=== PATIENT | female | born 1995 | race Caucasian/White ===

== ENCOUNTER 2018-12-18 12:36 | Emergency (ER) | payer BC ==
[~2018-12-18] VITALS: Ht 157.5 cm; Wt 73.5 kg
[~2018-12-18 12:36] MED LIST: AMOXICILLIN875 MG PO; MOTRIN IB200 MG PO; NORCO 10-325 T1 EACH PO; NORCO 5-325 TA1 EACH PO
== END 2018-12-18 13:15 | disposition home or self-care (01) ==
LOC: ED 12:36
DX: K08.89 Other specified disorders of teeth and supporting structures (principal)

== ENCOUNTER 2020-10-22 07:40 | Day surgery (SDC) | payer BC, OTHER ==
[~2020-10-22] VITALS: Ht 157.5 cm; Wt 79.1 kg
--- NOTE | ~2020-10-22 | OR ---
[facility] [address] [place], [place] [address] Draft DATE OF OPERATION: 10/22/2020 SURGEON: Saleem Farrell MD PREOPERATIVE DIAGNOSES: Chronic tonsillitis, tonsillithiasis. POSTOPERATIVE DIAGNOSES: Chronic tonsillitis, tonsillithiasis. PROCEDURE: Tonsillectomy. ANESTHESIA: General orotracheal. GLUELINE WORKER: Maggy. PREOPERATIVE HISTORY: Kita is a 25-year-old young lady with chronic tonsillitis, tonsillithiasis, tonsillar hypertrophy, taken to the operating for the above-mentioned procedures. OPERATIVE PROCEDURE AND FINDINGS: After informed consent, the patient was taken to the operating room, placed in supine position where general orotracheal anesthesia was induced. The patient and procedure were verified. The patient was repositioned, McIvor mouth gag placed into suspension. Headlight exam of the pharynx showed markedly hypertrophic obstructive cryptic tonsillithic tonsils. The left tonsil was grasped with a tenaculum, retracted medially and removed from its fossa with mucosa-sparing incision with Coblation. Field was dry after the procedure. Same procedure on the right tonsil, tonsils were sent to pathology. The mouth gag was released for several minutes. Reinspection showed no bleeding points. The pharynx was suctioned clear of blood and secretions. Mouth gag was removed. The patient was awakened, extubated, transported to the recovery room in good condition. No complications. BLOOD LOSS: Minimal. SPECIMEN: PATIENT NAME: KITA PALACIO OPERATIVE REPORT DATE OF : [birth year] REPORT #: [id number] PHYSICIAN: SALEEM FARRELL MD PCP: LUIS ENRIQUE FULTON MD REPORT IS CONFIDENTIAL AND NOT TO BE RELEASED WITHOUT AUTHORIZATION [address] [address] Draft To pathology. DRAINS: No drains. Saleem Farrell MD GC/TIERNEY /[id number] Copies: ~ PATIENT NAME: KITA PALACIO OPERATIVE REPORT DATE OF : [birth year] REPORT #: [id number] PHYSICIAN: SALEEM FARRELL MD PCP: LUIS ENRIQUE FULTON MD REPORT IS CONFIDENTIAL AND NOT TO BE RELEASED WITHOUT AUTHORIZATION
[~2020-10-22 07:40] MED LIST changes: +METHADOSE40 MG PO
--- NOTE | 2020-10-22 10:11 | NUR ---
10/22/20 1011 Sheets,Yasemin 0950 PT ARRIVED TO PACU COUGHING AND ON 6L VIA MASK, VSS. PT REPORTS SMALL AMOUNT OF PAIN. 1000 SUCTIONS GIVEN TO PT, PT ABLE TO FOLLOW COMMANDS AND SUCTION SMALL AMOUNT OF RED DRAINAGE FROM MOUTH. 1010 PLAN OF CARE DISCUSSED.
--- NOTE | 2020-10-22 10:29 | NUR ---
PT IS BACK TO DS FROM PACU. SHE IS REPORTING MORE TOOTH THAN THROAT PAIN. SHE IS TOLERATING SIPS OF WATER. CALL LIGHT WITHIN REACH. SHE IS AGREEABLE TO TRYING SOME JELLO. NO ADDITIONAL NEEDS AT THIS TIME.
[2020-10-22] MEDS ORDERED: HYDROCODONE-ACE15 M3 PO (10:38)
--- NOTE | 2020-10-22 11:32 | NUR ---
PT IS RESTING COMFORTABLY. BOYFRIEND IS SITTING AT THE BEDSIDE. CALL LIGHT WITHIN REACH. SHE TOLERATES JELLO AND WATER. NO ADDITIONAL NEEDS AT THIS TIME.
--- NOTE | 2020-10-22 12:36 | NUR ---
KVNG 1215: PT IS GIVEN VERBAL DC INSTRUCTIONS WITH BOYFRIEND PRESENT. BOTH VERBALIZE UNDERSTANDING. QUESTIONS ARE ASKED AND ANSWERED. PT IS TAKEN TO VEHICLE IN . SHE IS ABLE TO TRANSFER HERSELF FROM WC TO VEHICLE.
--- NOTE | 2020-10-24 14:29 | PATH ---
[facility] [address] [place], [place] [address] Signed SPECIMEN(S): A LEFT TONSIL SPECIMEN(S): B RIGHT TONSIL SPECIMEN SOURCE: A. LEFT TONSIL B. RIGHT TONSIL CLINICAL HISTORY: Tonsillectomy. Chronic tonsillitis with tonsillar hypertrophy. FINAL PATHOLOGIC DIAGNOSIS: A. Left tonsil: - [place] tonsil with focal acute epithelial inflammation (tonsillitis) and lymphofollicular hyperplasia with reactive features. B. Right tonsil: - [place] tonsil with focal acute epithelial inflammation (tonsillitis) and lymphofollicular hyperplasia with reactive features. JVR:[facility]:C2NR MICROSCOPIC EXAMINATION: Histologic sections of all submitted blocks are examined by light microscopy. These findings, together with the gross examination, support the pathologic diagnosis. GROSS DESCRIPTION: Two specimens are received in two containers, labeled "AA." A. The specimen, labeled "AA, A." and designated on the requisition "left tonsil, "is received in formalin and consists of a esteves palatine tonsil measuring 3.6 x 2.5 x 1.5 cm. The cut surface is smooth and esteves. The surgical margin is inked black and a customer response representative section is submitted in cassette (A1). B. The specimen, labeled "AA, B.," and designated on the requisition "right tonsil," is received in formalin and consists of a esteves palatine tonsil measuring 3.6 x 2.3 x 1.6 cm. The cut surface is smooth and esteves. A customer response representative section is submitted in cassette (A1). AT (under the direct supervision of a pathologist) The Gross Description was prepared using a voice recognition system. The report was reviewed for accuracy; however, sound-alike word errors, addition and/or deletions may occur. If there is any question about this report, please contact Client Services. PATIENT NAME: KITA PALACIO PATHOLOGY DATE OF : [birth year] REPORT #: [id number] PHYSICIAN: HECTOR PATHOLOG[facility] PCP: LUIS ENRIQUE FULTON MD REPORT IS CONFIDENTIAL AND NOT TO BE RELEASED WITHOUT AUTHORIZATION [facility] [address] [place], [place] [address] Signed PERFORMING LABORATORY: The technical component was performed by [facility], [address] [place] [address] (Caramel Maker: Sydney Gery MD; CLIA# [id number]). Professional interpretation was performed by [facility], [facility], [address] [place] [address] (CLIA#: [id number]). Diagnostician: Stiven hWitten MD Pathologist Electronically Signed 10/24/2020 Copies: ~ PATIENT NAME: KITA PALACIO PATHOLOGY DATE OF : [birth year] REPORT #: [id number] PHYSICIAN: HECTOR PATHOLOG[facility] PCP: LUIS ENRIQUE FULTON MD REPORT IS CONFIDENTIAL AND NOT TO BE RELEASED WITHOUT AUTHORIZATION
== END 2020-10-22 12:20 | disposition home or self-care (01) ==
LOC: OPS 07:40 → DS 07:40 → OPS 09:00
PROVIDERS: ATTEND Otolaryngology
DX: J35.01 Chronic tonsillitis (principal); J35.8 Other chronic diseases of tonsils and adenoids; J34.1 Cyst and mucocele of nose and nasal sinus; F11.11 Opioid abuse, in remission
CPT/HCPCS: 00170; J0330; J1100; J1170; J2001; J2250; J2405; J2704; J7121

== ENCOUNTER 2023-04-28 10:12 | Emergency (ER) | payer OTHER ==
[~2023-04-28] VITALS: Ht 157.5 cm; Wt 89.6 kg
[~2023-04-28 10:12] MED LIST changes: +HYDROCODONE-ACE15 M3 PO
[2023-04-28] MEDS ORDERED: MULTI VITAMIN1 EACH (10:33)
[2023-04-28] MEDS ORDERED: METHIMAZOLE10 MG (10:34)
[2023-04-28] MEDS ORDERED: VISTARIL25 MG PO (10:47)
[2023-04-28 16:00] VITALS: BP 147/84
[2023-04-28] MEDS ORDERED: METROGEL60 GM TOP (16:05)
--- NOTE | 2023-04-30 06:21 | EKG ---
[facility] [address] [facility] [place], [place] [address] Signed Sinus tachycardia Otherwise normal ECG No previous ECGs available Confirmed by MICHEAL DIAZ MD ([id number]) on 04/30/2023 6:20:51 AM Electronically Signed By: MICHEAL DIAZ 04/30/23 0621 PATIENT NAME: MARQUISE ESTRADAKITADAMIEN CHAVES Electrocardiogram DATE OF : [birth year] PHYSICIAN: MICHEAL DIAZ REPORT #: [id number] REPORT IS CONFIDENTIAL AND NOT TO BE RELEASED WITHOUT AUTHORIZATION
== END 2023-04-28 16:00 | disposition home or self-care (01) ==
LOC: ED 10:12
DX: F41.9 Anxiety disorder, unspecified (principal); E03.9 Hypothyroidism, unspecified; Z79.899 Other long term (current) drug therapy
CPT/HCPCS: 36415; 80053; 81003; 83605; 84439; 84443; 84703; 85025; 87210; 93005; 93010; 96365; 96375; 99283 25; A9270; J3480; J7030; J7121